=== PATIENT | female | born 1985 | race Hispanic/Latino ===

== ENCOUNTER 2017-09-10 15:41 | Emergency (ER) | payer OTHER ==
[2017-09-10 15:50] VITALS: BP 157/94; PULSE 112; RESP 20; TEMP 98.9; O2SAT 100
--- NOTE | 2017-09-10 16:58 | ED PDOC ---
HPI: Female Pain Time Seen by Provider: 09/10/17 15:57 Chief Complaint (Nursing): Female Genitourinary Chief Complaint (Provider): Female Genitourinary History Per: Patient History/Exam Limitations: no limitations Current Symptoms Are (Timing): Still Present Additional Complaint(s): 32 year old female presents to the emergency department with dizziness, lightheadedness, chest pain, and lower abdominal pain that started today, 2017. Patient is , A1, and was seen by her obstetrics and gynecology doctor who had initial blood work done for her. Reports she had a Beta-HCG levels of 74 at the time and was sent by her doctor to the emergency department to rule out an ectopic . Denies vaginal bleeding, calf pain , leg swelling, burning sensation with urination, or blood in urine. Past Medical History Reviewed: Historical Data, Nursing Documentation, Vital Signs Vital Signs: Last Vital Signs Temp 98.9 F 09/10/17 15:45 Pulse 112 H 09/10/17 15:45 Resp 20 09/10/17 15:45 BP 157/94 H 09/10/17 15:45 Pulse Ox 100 09/10/17 15:45 - Medical History PMH: No Chronic Diseases - Surgical History Surgical History: No Surg Hx - Family History Family History: States: Unknown Family Hx - Social History Current smoker - smoking cessation education provided: No Alcohol: None Drugs: Denies - Allergies Allergies/Adverse Reactions: Allergies Allergy/AdvReac Type Severity Reaction Status Date / Time No Known Allergies Allergy Verified 09/10/17 15:45 Review of Systems ROS Statement: Except As Marked, All Systems Reviewed And Found Negative (As per HPI, otherwise negative) Cardiovascular: Positive for: Chest Pain Gastrointestinal: Positive for: Abdominal Pain (lower region) Genitourinary Female: Negative for: Dysuria, Hematuria, Vaginal Bleeding Musculoskeletal: Negative for: Leg Pain (No calf pain or leg swelling) Neurological: Positive for: Dizziness (Lightheadedness) Physical Exam - Reviewed Nursing Documentation Reviewed: Yes Vital Signs Reviewed: Yes - Physical Exam Appears: Positive for: Well (Speaking in full sentences), Non-toxic, No Acute Distress Head Exam: Positive for: ATRAUMATIC, NORMAL INSPECTION, NORMOCEPHALIC Skin: Positive for: Normal Color, Warm, Dry Cardiovascular/Chest: Positive for: Regular Rate, Rhythm. Negative for: Murmur Respiratory: Negative for: Normal Breath Sounds, Accessory Muscle Use, Respiratory Distress Gastrointestinal/Abdominal: Positive for: Soft, Tenderness (Right adnexal area and suprapubic region). Negative for: Normal Exam, Guarding, Rebound Extremity: Positive for: Normal ROM. Negative for: Pedal Edema, Calf Tenderness , Swelling Neurologic/Psych: Positive for: Alert, Oriented (x3) - Laboratory Results Result Diagrams: 09/10/17 16:45 09/10/17 16:45 - ECG O2 Sat by Pulse Oximetry: 100 (RA) Pulse Ox Interpretation: Normal Medical Decision Making Medical Decision Making: Time: 1629 Initial impression: Abdominal pain in setting of known , chest pain, , and lightheadedness. Initial plan: EKG Beta-HCG, Quantitative CMP Troponin I Urine DIP & Preg CBC w/ diff PTT & Prothrombin Urinalysis Chest x-ray Duplex Venous US OB Preg US Reevaluation Time: 1644 --Beta, HCG, Quantitative: 52.53 Time: 2001 --Duplex US FINDINGS: Right deep veins: Normal color and spectral Doppler flow. Normal compressibility. No deep vein thrombosis from common femoral to popliteal vein. Right superficial veins: Unremarkable. Left deep veins: Normal color and spectral Doppler flow. Normal compressibility. No deep vein thrombosis from common femoral to popliteal vein. Left superficial veins: Unremarkable. Soft tissues: No popliteal cyst. IMPRESSION: 1. No evidence of DVT within lower extremities. Time: 2004 -- US FINDINGS: Gestation: No intrauterine gestational sac. Uterus/cervix: Endometrium: 0.4 cm in thickness. Trace fluid within cervix. Ovaries: RIGHT ovary: 1.5 x 1.3 x 1.1 cm anechoic lesion. LEFT ovary: Normal. No adnexal masses. Free fluid: No significant free fluid. IMPRESSION: 1. No intrauterine gestation. DDX: Early IUP, missed , ectopic . 2. RIGHT ovarian cyst. Time : 2118 --Angio CT Accession No. : [id number] Patient Name / ID : CHERRIE UMANZOR / [id number] Exam Date : 09/10/2017 22:14:53 ( Approved ) Study Comment : Sex / Age : F / 32Y Creator : Mario Mishra MD Dictator : Director Critical Care : Electrical Line Mechanic : Mario Mishra MD Approver2 : Report Date : 09/10/2017 22:50:00 My Comment : [facility] Division of Radiology [address] [address] Tel. no. Patient Name: NOÉ GRIER Pt. Address: [address] [place] [address]. Rec #: [id number] [place] [address]: Usha RAYMOND,Myra Armstrong Pt Order Location: [facility] : 1985 Female Age: 32 Order #: [id number] Reason for exam: CP CT Scan ANGIO CHEST PE PROTOCOL Exam Date: 09/10/17 This imaging exam was performed at [facility] EXAM: CT Angiography Chest With Intravenous Contrast CLINICAL HISTORY: 32 years old, female; Pain; Other: Cp miscarriaged; Patient HX: Cp SOB TECHNIQUE: Axial computed tomographic angiography images of the chest with intravenous contrast using pulmonary embolism protocol. All CT scans at this facility use one or more dose reduction techniques, viz.: automated exposure control; ma/kV adjustment per patient size (including targeted exams where dose is matched to indication; i.e. head); or iterative reconstruction technique. MIP reconstructed images were created and reviewed. Coronal and sagittal reformatted images were created and reviewed. CONTRAST: 98 mL of VISIPAQUE administered intravenously. COMPARISON: No relevant prior studies available. FINDINGS: Limitations: Suboptimal timing of bolus. Pulmonary arteries: No definite filling defects within main, lobar, segmental branches. Suboptimal evaluation of subsegmental branches. Aorta: No aneurysm. No dissection. Lungs: Minimal atelectasis. No consolidation. Pleural space: No significant effusion. No pneumothorax. Heart: No cardiomegaly. No significant pericardial effusion. Bones/joints: No acute fracture. Soft tissues: Unremarkable. Lymph nodes: No pathologically enlarged lymph nodes. IMPRESSION: 1. No definite pulmonary embolism. 2. Incidental/non-acute findings are described above. Dictated By: Mario Mishra MD Dictated Date/Time: 09/10/172249 Signed By: Mario Mishra MD Date Signed: 2249 Transcribed By: CRISTA Transcribe Date/Time : 09/10/172249 ACYP02/[id number] Copy of labs and imaging given to patient. Scribe Attestation: Documented by Letha Mullen, acting as a scribe for Myra Kerr MD. Provider Scribe Attestation: All medical record entries made by the Scribe were at my direction and personally dictated by me. I have reviewed the chart and agree that the record accurately reflects my personal performance of the history, physical exam, medical decision making, and the department course for this patient. I have also personally directed, reviewed, and agree with the discharge instructions and disposition. Disposition - Clinical Impression Clinical Impression: Spontaneous , Atypical chest pain - Disposition Disposition: Routine/Home Disposition Time: 23:02 Condition: STABLE Additional Instructions: FOLLOW-UP WITH OB-COMMUNITY LIFE DIRECTOR AND PMD WITHIN 2 DAYS FOR REEVALUATION. Instructions: Chest Pain (ED), Spontaneous Miscarriage (ED) Forms: [facility] (Welsh)
[2017-09-10 17:19] LABS: BASO % 0.5 % (0.0-2.0); EOS # 0.2 K/uL (0.0-0.7); HEMOGLOBIN 14.2 g/dL (12.0-16.0); LYMPH # 2.6 K/uL (1.0-4.3); LYMPH % 27.8 % (20.0-40.0); MEAN CORPUSCULAR HEMOGLOBIN 30.4 pg (27.0-31.0); MEAN CORPUSCULAR HGB CONC 33.1 g/dL (33.0-37.0); MEAN PLATELET VOLUME 8.7 fl (7.2-11.7); MONO # 0.8 K/uL (0.0-0.8); MONO % 8.4 % (0.0-10.0); NEUT # 5.8 K/uL (1.8-7.0); NEUT % 61.3 % (50.0-75.0); NRBC % 0.2 % (0.0-0.0); RBC 4.65 Mil/uL (3.80-5.20); RED CELL DISTRIBUTION WIDTH 12.8 % (11.5-14.5); WHITE BLOOD COUNT 9.4 K/uL (4.8-10.8)
[2017-09-10 17:27] LABS: INR 1.1 (0.9-1.2); PROTHROMBIN TIME 12.6 Seconds (9.8-13.1)
[2017-09-10 17:28] LABS: PARTIAL THROMBOPLASTIN TIME 33.3 Seconds (25.6-37.1)
[2017-09-10 17:30] LABS: ALB/GLOB RATIO 1.2 (1.0-2.1); ALBUMIN 4.3 g/dL (3.5-5.0); ALT/SGPT 58 U/L (9-52); AST/SGOT 37 U/L (14-36); BLOOD UREA NITROGEN 10 mg/dl (7-17); CALCIUM 9.1 mg/dL (8.4-10.2); GFR AFRICAN-AMERICAN > 60; GFR NON-AFRICAN AMERICAN > 60
[2017-09-10 17:51] LABS: SQUAMOUS EPITHIAL 1 /hpf (0-5); URINE BACTERIA RARE (<OCC); URINE BILIRUBIN NEGATIVE (NEGATIVE); URINE BLOOD NEGATIVE (NEGATIVE); URINE CLARITY SLIGHTY-CLOUDY (Clear); URINE COLOR YELLOW (YELLOW); URINE GLUCOSE (UA) NEG (Normal); URINE LEUKOCYTE ESTERASE NEG Leu/uL (Negative); URINE NITRATE NEGATIVE (NEGATIVE); URINE PROTEIN NEGATIVE (NEGATIVE)
[2017-09-10] MEDS ORDERED: Sodium Chloride 0.9% 50 ML IV ONE (22:07)
[2017-09-10] MEDS ORDERED: Iodixanol 320 MG/ML 100 ML BOTTLE IV ONE (22:07)
--- NOTE | 2017-09-10 22:51 | CT ---
EXAM: CT Angiography Chest With Intravenous Contrast CLINICAL HISTORY: 32 years old, female; Pain; Other: Cp miscarriaged; Patient HX: Cp SOB TECHNIQUE: Axial computed tomographic angiography images of the chest with intravenous contrast using pulmonary embolism protocol. All CT scans at this facility use one or more dose reduction techniques, viz.: automated exposure control; ma/kV adjustment per patient size (including targeted exams where dose is matched to indication; i.e. head); or iterative reconstruction technique. MIP reconstructed images were created and reviewed. Coronal and sagittal reformatted images were created and reviewed. CONTRAST: 98 mL of VISIPAQUE administered intravenously. COMPARISON: No relevant prior studies available. FINDINGS: Limitations: Suboptimal timing of bolus. Pulmonary arteries: No definite filling defects within main, lobar, segmental branches. Suboptimal evaluation of subsegmental branches. Aorta: No aneurysm. No dissection. Lungs: Minimal atelectasis. No consolidation. Pleural space: No significant effusion. No pneumothorax. Heart: No cardiomegaly. No significant pericardial effusion. Bones/joints: No acute fracture. Soft tissues: Unremarkable. Lymph nodes: No pathologically enlarged lymph nodes. IMPRESSION: 1. No definite pulmonary embolism. 2. Incidental/non-acute findings are described above.
--- NOTE | 2017-09-11 08:05 | US ---
PROCEDURE: Bilateral lower extremity venous duplex Doppler. HISTORY: , CP COMPARISON: None available. TECHNIQUE: Bilateral common femoral, superficial femoral, popliteal and posterior tibial veins were evaluated. Flow was assessed with color Doppler, compressibility, assessment of phasic flow and augmentation response. FINDINGS: COMMON FEMORAL VEIN: Right CFV: Unremarkable. Left CFV: Unremarkable. SUPERFICIAL FEMORAL VEIN: Right SFV: Unremarkable. Left SFV: Unremarkable. POPLITEAL VEIN: Right Popliteal: Unremarkable. Left Popliteal: Unremarkable. POSTERIOR TIBIAL VEIN: Right PTV: Unremarkable. Left PTV: Unremarkable. OTHER FINDINGS: None. IMPRESSION: No evidence of deep venous thrombosis.
--- NOTE | 2017-09-11 08:12 | US ---
HISTORY: CP 1st trimester, pelvic pain COMPARISON: None available. TECHNIQUE: Real-time transabdominal and transvaginal ultrasound examination of the pelvis was performed. FINDINGS: UTERUS: Measures 7.0 x 3.6 x 3.4 cm. Normal in size and appearance. No fibroid or other mass lesion seen. ENDOMETRIUM: Measures 3-4 mm in diameter. Normal in thickness. No endometrial thickening, mass, or gestational sac is identified. CERVIX: No cervical abnormality identified. RIGHT OVARY: Measures 3.0 x 1.9 x 2.4 cm. There is a 15 millimeter x 13 millimeter x 12 millimeter hypoechoic follicular cyst in the right ovary. Normal flow. LEFT OVARY: Measures 3.4 x 2.1 x 1.8 cm. No solid mass. Normal flow. FREE FLUID: No significant free fluid noted. OTHER FINDINGS: None. IMPRESSION: No evidence of intrauterine gestation or gestational sac. Simple small probable follicular cyst in the right ovary. Findings may reflect early intrauterine gestation or missed . Correlation with beta HCG laboratory values is suggested. As was mentioned on the preliminary report, ectopic cannot be excluded at the present time. Findings agree with preliminary report provided by the on-call radiologist.
--- NOTE | 2017-09-11 10:47 | RAD ---
HISTORY: CP COMPARISON: No prior. FINDINGS: LUNGS: No active pulmonary disease. PLEURA: No significant pleural effusion identified, no pneumothorax apparent. CARDIOVASCULAR: Normal. OSSEOUS STRUCTURES: No significant abnormalities. VISUALIZED UPPER ABDOMEN: Normal. OTHER FINDINGS: None. IMPRESSION: No active disease.
--- NOTE | 2017-09-11 11:53 | CARD ---
APPROVED REPORT EKG Measurement Heart [id number] [id number] <Conclusion> Normal sinus rhythm Rightward axis Borderline ECG
== END 2017-09-10 23:10 | disposition home or self-care (01) ==
LOC: H.ER 15:41
DX: O03.9 Complete or unspecified spontaneous abortion without complication (principal); N83.201 Unspecified ovarian cyst, right side; R07.89 Other chest pain
CPT/HCPCS: 71045; 71275; 76815; 76817; 80053; 81003; 81025; 84484; 84702; 85025; 85378; 85610; 85730; 93005; 93970; 99284; Q9967

== ENCOUNTER 2018-04-01 06:24 | Emergency (ER) | payer OTHER ==
[2018-04-01 06:29] VITALS: BMI 29.0
[2018-04-01] MEDS ORDERED: Sodium Chloride 0.9% 1,000 ML IV STA (07:34)
--- NOTE | 2018-04-01 07:59 | ED PDOC ---
HPI: CCC, URI, Sore Throat Time Seen by Provider: 04/01/18 07:15 Chief Complaint (Nursing): ENT Problem Chief Complaint (Provider): Shortness of Breath History Per: Patient History/Exam Limitations: no limitations Onset/Duration Of Symptoms: Days Current Symptoms Are (Timing): Still Present Additional Complaint(s): 32 y/o female with PMHx of possible asthma presents to the ED complaining of shortness of breath associated with cough, headache, dizziness/lightheadedness, mylagia, nausea and dry heaving, onset a couple of weeks ago. Patient also reports of chest discomfort/pain (right>left), insomnia, decreased appetite, urinary frequency and urgency. Patient reports of taking an inhaler for wheezing prior to arrival. Denies nasal congestion, back pain, dysuria, fever, allergies to medications and taking medications for symptom relief. Symptoms ongoing for few weeks. Headache is mild, not worst in her life and is frontal. No neck pain. States, "I think I have cancer". No long distance travel. No hormone tx. No leg pain. PMD: [place] Past Medical History Reviewed: Historical Data, Nursing Documentation, Vital Signs Vital Signs: Last Vital Signs Temp 98.3 F 04/01/18 06:29 Pulse 100 H 04/01/18 06:29 Resp 18 04/01/18 06:29 BP 143/97 H 04/01/18 06:29 Pulse Ox 96 04/01/18 08:04 - Medical History PMH: No Chronic Diseases - Surgical History Surgical History: No Surg Hx - Family History Family History: States: Unknown Family Hx - Living Arrangements Living Arrangements: With Family - Social History Alcohol: None Drugs: Denies - Immunization History Hx Tetanus Toxoid Vaccination: Yes Hx Influenza Vaccination: Yes (2014) Hx Pneumococcal Vaccination: No - Allergies Allergies/Adverse Reactions: Allergies Allergy/AdvReac Type Severity Reaction Status Date / Time No Known Allergies Allergy Verified 04/01/18 06:28 Review of Systems ROS Statement: Except As Marked, All Systems Reviewed And Found Negative Constitutional: Positive for: Other (myalgia). Negative for: Fever ENT: Negative for: Nose Congestion Cardiovascular: Positive for: Chest Pain (right > left) Respiratory: Positive for: Cough, Shortness of Breath Gastrointestinal: Positive for: Nausea, Vomiting (dry heaving) Genitourinary Female: Negative for: Dysuria Musculoskeletal: Negative for: Back Pain Neurological: Positive for: Headache, Dizziness (/lightheadedness) Physical Exam - Reviewed Nursing Documentation Reviewed: Yes Vital Signs Reviewed: Yes - Physical Exam Appears: Positive for: Non-toxic, No Acute Distress Head Exam: Positive for: ATRAUMATIC, NORMAL INSPECTION, NORMOCEPHALIC Skin: Positive for: Normal Color, Warm, Dry Eye Exam: Positive for: Normal appearance, EOMI, PERRL ENT: Positive for: Normal ENT Inspection. Negative for: Nasal Congestion, Pharyngeal Erythema Neck: Positive for: Normal, Painless ROM, Supple Cardiovascular/Chest: Positive for: Regular Rate, Rhythm, Chest Non Tender. Negative for: Edema, Bradycardia, Tachycardia Respiratory: Positive for: Normal Breath Sounds. Negative for: Respiratory Distress Gastrointestinal/Abdominal: Positive for: Normal Exam, Soft. Negative for: Tenderness Back: Positive for: Normal Inspection. Negative for: L CVA Tenderness, R CVA Tenderness, Vertebral Tenderness Extremity: Positive for: Normal ROM. Negative for: Tenderness, Pedal Edema, Deformity Neurologic/Psych: Positive for: Alert, air hole driller II-XII, Oriented (x3). Negative for : Motor/Sensory Deficits, Facial Droop - Laboratory Results Result Diagrams: 04/01/18 07:30 04/01/18 07:30 Interpretation Of Abn Labs: 11.4 wbc Urine POC: Negative Urine dip results: Negative for: Leukocyte Esterase, Blood, Nitrate - ECG ECG: Positive for: Interpreted By Me, Viewed By Me ECG Rhythm: Positive for: Normal QRS, Normal ST Segment, Sinus Rhythm O2 Sat by Pulse Oximetry: 96 (RA) Pulse Ox Interpretation: Normal - Radiology X-Ray: Interpreted by Me, Viewed By Me X-Ray Interpretation: No Acute Disease - Progress ED Course And Treament: 932: Stable. AAOx3. Pain free. Tolerated PO. Fu with pcp. Medical Decision Making Medical Decision Making: Time: 738 Plan: -- EKG -- CMP -- Lipase -- Troponin I -- ED Urine -- ED Urine -- ED Urine Dipstick -- CBC with differentials -- PTT -- Prothrombin time -- CXR Two Views -- Sodium Chloride IV 1000 mls/hr -- Toradol 15 mg IVP Scribe Attestation: Documented by Alex Sawant acting as a scribe for Dr. Emeterio Whatley MD. Provider Scribe Attestation: All medical record entries made by the Scribe were at my direction and personally dictated by me. I have reviewed the chart and agree that the record accurately reflects my personal performance of the history, physical exam, medical decision making, and the department course for this patient. I have also personally directed, reviewed, and agree with the discharge instructions and disposition. Disposition - Clinical Impression Clinical Impression: Myalgia, URI (upper respiratory infection) - Patient ED Disposition Is Patient to be Admitted: No Counseled Patient/Family Regarding: Studies Performed, Diagnosis, Need For Followup - Disposition Referrals: [facility] [Outside] - 04/03/18 Disposition: Routine/Home Disposition Time: 09:33 Condition: STABLE Additional Instructions: Return if not better in 3 days. Instructions: Viral Upper Respiratory Infection, Adult (DC), Muscle and Bone Pain (DC) Forms: [facility] (Cameroonian), [facility] ED School/Work Excuse
[2018-04-01 08:24] LABS: BASO % 0.4 % (0.0-2.0); EOS # 0.1 K/uL (0.0-0.7); EOS % 0.8 % (0.0-4.0); LYMPH # 2.4 K/uL (1.0-4.3); LYMPH % 20.6 % (20.0-40.0); MEAN CELL VOLUME 93.1 fl (81.0-99.0); MEAN CORPUSCULAR HEMOGLOBIN 32.1 pg (27.0-31.0); MEAN CORPUSCULAR HGB CONC 34.4 g/dL (33.0-37.0); MONO # 1.1 K/uL (0.0-0.8); MONO % 9.6 % (0.0-10.0); NEUT # 7.8 K/uL (1.8-7.0); NEUT % 68.6 % (50.0-75.0); NRBC % 0.1 % (0.0-0.0); RBC 4.36 Mil/uL (3.80-5.20); RED CELL DISTRIBUTION WIDTH 13.3 % (11.5-14.5); WHITE BLOOD COUNT 11.4 K/uL (4.8-10.8)
[2018-04-01 08:31] LABS: INR 1.2 (0.9-1.2); PARTIAL THROMBOPLASTIN TIME 30.2 Seconds (25.6-37.1); PROTHROMBIN TIME 13.1 Seconds (9.8-13.1)
[2018-04-01 08:34] LABS: ALB/GLOB RATIO 1.2 (1.0-2.1); ALBUMIN 4.2 g/dL (3.5-5.0); ALT/SGPT 25 U/L (9-52); AST/SGOT 30 U/L (14-36); BLOOD UREA NITROGEN 7 mg/dl (7-17); CALCIUM 9.4 mg/dL (8.4-10.2); GFR NON-AFRICAN AMERICAN > 60; LIPASE 42 U/L (23-300)
[2018-04-01 09:51] VITALS: BP 126/78; PULSE 78; RESP 19; TEMP 97; O2SAT 98
--- NOTE | 2018-04-01 10:51 | RAD ---
Date of service: 04/01/2018 HISTORY: cough COMPARISON: Chest radiograph dated 09/10/2017 TECHNIQUE: Chest PA and lateral FINDINGS: LUNGS: No active pulmonary disease. PLEURA: No significant pleural effusion identified. No pneumothorax apparent. CARDIOVASCULAR: Normal. OSSEOUS STRUCTURES: No significant abnormalities. VISUALIZED UPPER ABDOMEN: Normal. OTHER FINDINGS: None. IMPRESSION: No active disease.
--- NOTE | 2018-04-03 17:57 | CARD ---
APPROVED REPORT Date of service: 04/01/2018 EKG Measurement Heart [id number] NM 134P60 [id number] <Conclusion> Normal sinus rhythm Rightward axis Borderline ECG
== END 2018-04-01 09:51 | disposition home or self-care (01) ==
LOC: H.ER 06:24
DX: M79.1 Myalgia (principal); J06.9 Acute upper respiratory infection, unspecified
CPT/HCPCS: 71046; 80053; 81025; 83690; 84484; 85025; 85610; 85730; 93005; 96374; 99282; J1885; J7030